=== PATIENT | male | born 1990 | race Hispanic/Latino ===

== ENCOUNTER 2021-08-25 11:43 | Emergency (ER) | payer SELFPAY ==
[2021-08-25] MEDS ORDERED: Ketorolac Tromethamine 30 MG/ML VIAL ONE (14:40)
== END 2021-08-25 15:05 | disposition home or self-care (01) ==
LOC: ERS 11:43
DX: S52.501A Unspecified fracture of the lower end of right radius, initial encounter for closed fracture (principal); W11.XXXA Fall on and from ladder, initial encounter
CPT/HCPCS: 24650; 96372; J1885